=== PATIENT | female | born 1990 | race Two or more races ===

== ENCOUNTER 2023-01-07 13:23 | Emergency (ER) | payer MEDICAID, OTHER ==
[2023-01-07] MEDS ORDERED: Lidocaine 1% with EPINEPHrine 1:100,000 20 ML MDV INJECT ONE (13:38)
== END 2023-01-07 14:39 | disposition home or self-care (01) ==
LOC: MW.ED 13:23
DX: S91.312A Laceration without foreign body, left foot, initial encounter (principal); W25.XXXA Contact with sharp glass, initial encounter
CPT/HCPCS: 12001; 99282; 99283; J3490

== ENCOUNTER 2023-01-27 14:12 | Emergency (ER) | payer MEDICAID, OTHER | END 2023-01-27 14:47 | disposition home or self-care (01) | LOC: MW.ED 14:12 | DX: S91.012D Laceration without foreign body, left ankle, subsequent encounter (principal); Z48.02 Encounter for removal of sutures; W25.XXXD Contact with sharp glass, subsequent encounter | CPT/HCPCS: 99281 ==